=== PATIENT | female | born 1965 | race Caucasian/White ===

== ENCOUNTER 2022-08-10 15:28 | Emergency (ER) | payer SELFPAY ==
[2022-08-10] MEDS ORDERED: Ondansetron 4 MG/2 ML SDV IVPUSH ONE (15:54)
[2022-08-10] MEDS ORDERED: Sodium Chloride 0.9% 10 ML Syringe FLUSH PRN ×2 (15:54→16:04)
[2022-08-10] MEDS ORDERED: LORazepam 2 MG/ML SDV IVPUSH ONE (15:59)
[2022-08-10] MEDS ORDERED: Sodium Chloride 0.9% 1,000 ML IV SCH (16:00)
[2022-08-10] MEDS ORDERED: Iopamidol 612 MG/ML 100 ML Bottle IVPUSH ONE (16:04)
[2022-08-10] MEDS ORDERED: Potassium Chloride 20 MEQ Tab.ER PO ONE (18:40)
[2022-08-10 19:22] LABS: CORONAVIRUS COVID-19 NAA POSITIVE (NEGATIVE)
[2022-08-10] MEDS ORDERED: Magnesium Sulfate/Water 2 GM in Premix Bag 1 BAG IV ONE (19:29)
[2022-08-10] MEDS ORDERED: Sodium Chloride 0.9% 1,000 ML IV ONE (19:29)
== END 2022-08-10 21:10 ==
LOC: JD.ED 15:28
DX: U07.1 COVID-19 (principal); D69.6 Thrombocytopenia, unspecified; F10.930 Alcohol use, unspecified with withdrawal, uncomplicated; E87.6 Hypokalemia; E83.42 Hypomagnesemia; Y90.1 Blood alcohol level of 20-39 mg/100 ml
CPT/HCPCS: 0240U; 36415; 74177; 80053; 80307; 81001; 83690; 83735; 85025; 86140; 96361; 96365; 96366; 96375; 99285; A9270; J2060; J2405; J3475; J3490; J7030; Q9967